=== PATIENT | female | born 1955 | race Caucasian/White ===

== ENCOUNTER 2016-11-30 17:04 | Emergency (ER) | payer BC ==
[~2016-11-30] VITALS: Ht 149.9 cm; Wt 74.2 kg
[2016-11-30] MEDS ORDERED: PHENAZOPYRIDINE 200 MG TABLET ONE (17:58)
[2016-11-30] MEDS ORDERED: PHENAZOPYRIDINE 200 MG TABLET PO ONE (18:00)
[2016-11-30 18:22] LABS: ASPARTATE AMINO TRANSFERASE 25 U/L (15-37); BLOOD UREA NITROGEN 10 mg/dL (7-18)
[2016-11-30 19:19] VITALS: BP 142/87
== END 2016-11-30 19:46 | disposition home or self-care (01) ==
LOC: ED 18:55
DX: R30.0 Dysuria (principal); N39.0 Urinary tract infection, site not specified; R31.9 Hematuria, unspecified; Z87.891 Personal history of nicotine dependence
CPT/HCPCS: 36415; 80053; 81001; 85025; 87086; 99284

== ENCOUNTER 2019-11-15 22:28 | Emergency (ER) | payer BC ==
[~2019-11-15] VITALS: Ht 149.9 cm; Wt 69.2 kg
[2019-11-15 22:33] VITALS: BP 174/69
[2019-11-15] MEDS ORDERED: LIDODERM 5% PATCH TD ONE ×2 (22:54→23:00)
[2019-11-15] MEDS ORDERED: KETOROLAC 30 MG/1 ML ONE (22:54)
[2019-11-15] MEDS ORDERED: ACETAMINOPHEN 500 MG TABLET ONE (22:55)
[2019-11-15] MEDS ORDERED: KETOROLAC 30 MG/1 ML IM ONE (23:00)
[2019-11-15] MEDS ORDERED: ACETAMINOPHEN 500 MG TABLET PO ONE (23:00)
== END 2019-11-16 00:27 | disposition home or self-care (01) ==
LOC: ED 23:51
DX: S39.012A Strain of muscle, fascia and tendon of lower back, initial encounter (principal); E11.9 Type 2 diabetes mellitus without complications; J45.909 Unspecified asthma, uncomplicated; E78.00 Pure hypercholesterolemia, unspecified; Z90.89 Acquired absence of other organs; Z90.710 Acquired absence of both cervix and uterus; X58.XXXA Exposure to other specified factors, initial encounter; Y93.89 Activity, other specified; Y92.89 Other specified places as the place of occurrence of the external cause; Y99.8 Other external cause status
CPT/HCPCS: 96372; 99283; J1885